=== PATIENT | male | born 1985 | race Caucasian/White ===

== ENCOUNTER 2024-06-23 20:47 | Emergency (ER) | payer SELFPAY ==
[2024-06-23] VITALS (7 sets, daily range): BP systolic 100–105; BP diastolic 66–80; PULSE 57–63; RESP 12–18; TEMP 36.4; O2SAT 96–99; BMI 25.0
--- NOTE | 2024-06-23 21:40 | ED.VIS.CHEST ---
HPI History of Present Illness Chief Complaint: Chest Pain Informant: patient Onset/Context/Timing Onset: Weeks (2) Activity at onset: gradual Timing: Waxes and wanes Quality: Positive for Dull and Sharp Location: Substernal, Left Parasternal and Left Chest Worsened By: Nothing Relieved By: Nothing Associated Symptoms: Positive for Nausea, Diaphoresis, Dyspnea, Lightheadedness, Acid Reflux and Palpitations; Negative for Vomiting, Cough or Fever Narrative Narrative: Patient presents with chest pain that began 2 weeks ago. Patient states has been waxing and waning but is always present. Patient describes it as sharp and dull. Patient states it is over the substernal area and into his left chest. Patient states nothing makes it better and nothing makes it worse. Patient admits to some nausea but denies any vomiting. Patient admits to some shortness of breath and diaphoresis. Patient also admits to some lightheadedness and palpitations. CVD Risk Factors: Positive for Family History 1' </=55; Negative for Hypertension, Diabetes, Hypercholesterolemia or Smoking PE Risk Factors: Negative for Recent Travel/Surgery, Recent Immobilization, Prior DVT or PE, Cancer or OCP + Smoking + >/=35 PFSH PFSH Medical History no medical history no medical history Home Medications ?Medication ?Instructions ?Recorded ?Last Taken ?Type NK 06/23/24 Unknown History Allergy/AdvReac Type Severity Reaction Status Date / Time adhesive AdvReac Hives Verified 06/23/24 20:51 Surgical History (Updated 06/23/24 @ 21:[address] Zeus Cobb, ) History of tonsillectomy and adenoidectomy Social History Smoking Status: Former smoker ROS ROS ED Constitutional Constitutional ED: Denies chills or fever(s) Eyes Eyes: Reports blurry vision; Denies diplopia ENT ENT ED: Denies rhinorrhea or sore throat Cardiovascular Cardiovascular: Reports chest pain, palpitations and racing heartbeat Respiratory/Chest Respiratory/Chest: Reports dyspnea; Denies cough Gastrointestinal Gastrointestinal: Reports nausea; Denies vomiting Genitourinary Genitourinary ED: Denies dysuria or hematuria Musculoskeletal Musculoskeletal: Reports back pain and neck pain Integumentary Denies abscess or rash Neurologic Neurologic: Reports headache(s); Denies weakness Allergic/Immunologic Allergic/Immunologic ED: Denies mouth swelling or urticaria EXAM Physical Exam Const Vital Signs: 06/23/24 20:48 06/23/24 21:13 06/23/24 21:45 Temperature 97.6 F L Temperature Source Oral Pulse Rate 57 L Respiratory Rate 16 Respiratory Effort Normal Blood Pressure 100/80 Blood Pressure Mean 86 Pulse Ox 99 97 Oxygen Delivery Method Room Air Room Air 06/23/24 21:48 06/23/24 21:53 06/23/24 22:00 Temperature Temperature Source Pulse Rate 60 60 63 Respiratory Rate 18 12 Respiratory Effort Blood Pressure 101/66 105/66 101/71 Blood Pressure Mean 77 81 Pulse Ox 99 97 Oxygen Delivery Method Room Air 06/23/24 23:00 Temperature Temperature Source Pulse Rate 62 Respiratory Rate 18 Respiratory Effort Blood Pressure 104/71 Blood Pressure Mean 82 Pulse Ox 97 Oxygen Delivery Method Room Air Positive well nourished and well developed Constitutional Narrative: BMI is 25.1 General Appearance ED: well developed and NAD HEENT Reports moist mucous membranes normocephalic and atraumatic Neck supple and no JVD Chest Wall inspection of chest normal Chest: tenderness sternum and costochondral junction Resp normal respiratory effort and clear to auscultation bilaterally Cardio regular rate and regular rhythm GI soft to palpation, non-tender and non-distended Neuro oriented x3, CN's II-XII intact bilaterally and no sensory deficits noted Sensorium / Orientation: awake and alert Psych mental status grossly normal Heart Score History: Slightly/Non-Suspicious ECG: Normal Age: </= 45 years Risk Factors: 1 or 2 Risk Factors Troponin: </= Normal Limit Score: 1 MDM MDM MDM Narrative Medical decision making narrative: Differential diagnosis includes cardiac dysrhythmia, cardiac ischemia, pneumonia, bronchitis, gastroesophageal reflux disease, and musculoskeletal pain. EKG will be obtained to assess for cardiac dysrhythmia and cardiac ischemia. Chest x-ray will be obtained to assess for pneumonia and bronchitis. CBC will be obtained to assess for leukocytosis and anemia. Basic metabolic profile will be obtained to assess for electrolyte abnormality and renal function. High-sensitivity troponin will be obtained to assess for cardiac ischemia. Lab Data Attestation: I reviewed the patient's lab results. Lab results narrative: CBC was reviewed with her. Basic metabolic profile was reviewed and was essentially within normal limits. High-sensitivity troponin was reviewed and was less than 6. Labs: Laboratory Results - last 24 hr 06/23/24 21:00 WBC 9.4 RBC 4.94 Hgb 14.8 Hct 42.0 MCV 85.0 MCH 30.0 MCHC 35.2 RDW Std Deviation 38.3 RDW Coeff of Brad 12.5 Plt Count 308 MPV 9.8 Immature Gran % (Auto) 0.400 Neut % (Auto) 50.7 Lymph % (Auto) 39.1 [place] % (Auto) 7.2 Eos % (Auto) 2.0 Baso % (Auto) 0.6 Absolute Neuts (auto) 4.8 Absolute Lymphs (auto) 3.69 Nucleated RBC % 0 Sodium 139 Potassium 3.7 Chloride 101 Carbon Dioxide 27.9 Anion Gap 10 BUN 14 Creatinine 0.99 Estim Creat Clear Calc 93.66 Est GFR (MDRD) Non-Af 99 BUN/Creatinine Ratio 14.4 Glucose 120 H Calcium 9.5 Troponin T High Sens < 6 Radiography Chest X-Ray - ED: 2 View, Read by ED Physician, Read by Radiologist and No Acute Disease Diagnostic Testing: Clinical Impression(s) from Imaging Studies Chest X-Ray 06/23/24 22:10 IMPRESSION: Subtle opacity at the left infrahilar region and mildly prominent interstitial markings, as can be seen with atypical/viral infection, atelectasis, or edema. Reading Location: [facility] and lateral chest x-ray was obtained. There are 2 views. On my independent interpretation, lung rausch show subtle opacity of the left infrahilar region which could be atypical/viral infection, atelectasis, or edema. There is normal cardiac silhouette. Bony thorax is normal. Radiologist also interpreted the x-ray and agrees. EKG Initial EKG: Attestation: I personally reviewed and interpreted this EKG as follows: Interpretation: Sinus Rhythm (61) and No Acute Injury Pattern Comments: EKG was obtained. On my independent interpretation, it showed a normal sinus rhythm with a rate of 61. OR interval, QRS interval, and QTc intervals were all normal. Beauty was normal. There are no acute ST or T wave changes. Prior EKG tracings: not available for review Prior: No Prior Treatment and Re-Evaluation :: Patient was given aspirin and sublingual nitroglycerin. Patient was feeling better on reevaluation. Patient was advised of his findings. Patient has a HEART score of 1. Patient was advised that this is low risk for acute cardiac event. Patient was instructed to follow-up with his primary care physician in 5 to 7 days for further evaluation. Patient understood and was agreeable with the plan. All questions were answered. Discharge Plan Triage Chief Complaint: Chest Pain ED Provider: Zeus Cobb Dx/Rx/DC Orders Clinical Impression: Chest pain of uncertain etiology, Bradycardia Instructions: ED Chest Pain, Uncertain Cause Prescriptions: No Action NK Stand Alone Forms: Work / School Excuse Primary Care Provider: Care Physician,No Primary Referrals: Lindsey Russo DO [Med Staff - Active Staff] - 5-7 Days Care Physician,No Primary [Primary Care Provider] - Print Language: Syrian Disposition Disposition: Home, Self Care
--- NOTE | 2024-06-23 21:45 | EKG12_ITS ---
Test Reason : CP Blood Pressure : */* mmHG Vent. Rate : 61 BPM Atrial Rate : 61 BPM P-R Int : 174 ms QRS Dur : 90 ms QT Int : 394 ms P-R-T Axes : 59 74 53 degrees QTcB Int : 396 ms Normal sinus rhythm Normal ECG Confirmed by ZOILA DOUGLAS MD ([id number]), supervising editor news reel MARCELLA BLUNT ([id number]) on 06/24/2024 1:29:47 PM Referred By: JEFF Confirmed By: ZOILA DOUGLAS MD
[2024-06-23] MEDS: 0.9% Normal Saline (1000mL) 1,000 ML 999 ML IV (21:52)
[2024-06-23 21:53] LABS: Absolute Lymphocyte Count 3.69 X10^3/uL (0.83-4.51); Absolute Neutrophil Count 4.8 X10^3/uL (2.0-7.7); Basophil# 0.06 X10^3/uL; Basophil% 0.6 % (0-1); Eosinophil# 0.19 X10^3/uL; Hemoglobin 14.8 g/dL (13.0-16.5); Lymphocyte # 3.69 X10^3/ul (0.83-4.51); Lymphocyte % 39.1 % (19-41); Mean Corp Hgb Conc 35.2 g/dL (32-36); Mean Platelet Vol. 9.8 fl (6.2-12.0); Monocyte# 0.68 X10^3/uL; Monocyte% 7.2 % (0-10); NRBC Flagged by Analyzer 0 % (0-5); Neutrophil # 4.78 X10^3/uL (2.7-7.7); Neutrophil % 50.7 % (47-70); Platelet Count 308 K/mm3 (150-450); RBC Distribution Width CV 12.5 % (11.6-14.6); RBC Distribution Width SD 38.3 fl (35.1-43.9); Red Blood Count 4.94 M/mm3 (4.6-6.2); White Blood Count 9.4 K/mm3 (4.4-11.0)
[2024-06-23] MEDS: Nitroglycerin SL (ED/IMG/CATH) 0.4 MG TABLET SL (21:53)
[2024-06-23] MEDS: Aspirin 81 MG TAB.CHEW 324 MG PO (21:54)
--- NOTE | 2024-06-23 22:10 | RAD_ITS ---
PROCEDURE: CHEST PA AND LATERAL 06/23/2024 REASON FOR EXAM: CHEST PAIN TECHNIQUE: Frontal and lateral views of the chest. COMPARISON: None FINDINGS: Hardware: None Heart: The heart size is normal. Mediastinum: The mediastinal contour is unremarkable. Lungs: There is a subtle opacity at the left infrahilar region projecting over the left heart border.. Mildly increased interstitial markings. Bones: The bones are unremarkable. RAD/Chest PA and Lateral IMPRESSION: Subtle opacity at the left infrahilar region and mildly prominent interstitial markings, as can be seen with atypical/viral infection, atelectasis, or edema. Reading Location: [id number]
[2024-06-23 22:16] LABS: Anion Gap 10 (5-15); BUN 14 mg/dL (4-19); BUN/Creat Ratio 14.4 RATIO (10-20); Calcium,Total 9.5 mg/dL (7.6-11.0); Carbon Dioxide 27.9 mmol/L (21.0-32.0); Chloride 101 mmol/L (98-108); Creatinine, Serum 0.99 mg/dL (0.70-1.20); EST Glomerular Filtration Rate 99 (>60); Estimated Creatinine Clearance 93.66 ml/min (50-250); Glucose 120 mg/dL (70-99); Potassium 3.7 mmol/L (3.3-5.1); Sodium Level 139 mmol/L (133-145); Troponin T High Sensitivity < 6 ng/L (<=22)
== END 2024-06-23 23:14 | disposition home or self-care (01) ==
PROVIDERS: Emergency Provider Emergency Medicine; Visit Provider Emergency Medicine
DX: R07.9 Chest pain, unspecified (principal); R00.2 Palpitations; R00.1 Bradycardia, unspecified; R42 Dizziness and giddiness; R11.0 Nausea; M54.2 Cervicalgia; R06.02 Shortness of breath; K21.9 Gastro-esophageal reflux disease without esophagitis; Z87.891 Personal history of nicotine dependence
CPT/HCPCS: 71046; 80048; 84484; 85025; 93005; 96360; 99284; A4216